=== PATIENT | male | born 1965 | race Hispanic/Latino ===

== ENCOUNTER 2016-10-22 21:31 | Inpatient (IN) | payer BC ==
[2016-10-22] MEDS ORDERED: Aspirin 325 mg EC Tablets PO STA (21:45)
[2016-10-22] MEDS ORDERED: diltiaZEM IVPB 100mg in NS 100 ML IV PRN (21:45)
--- NOTE | 2016-10-22 21:49 | ED PDOC ---
Arrival/HPI - General Chief Complaint: Cough, Cold, Congestion Time Seen by Provider: 10/22/16 21:37 Historian: Patient - History of Present Illness Narrative History of Present Illness (Text): 10/22/16 21:38 51 year old male smoker presents to the emergency department complaining of shortness of breath today. Patient states today he began experiencing shortness of breath with associated cough and palpitations.The patient currently does not take any medications and does not see his PMD regularly. Patient denies any chest pain, abdominal pain, chills, nausea, vomiting, fever, headaches or any other complaints. Time/Duration: Prior to Arrival Symptom Onset: Sudden Symptom Course: Unchanged Severity Level: Mild Activities at Onset: Light Context: Walking, Home Past Medical History - Provider Review Nursing Documentation Reviewed: Yes - Psychiatric Hx Substance Use: No - Anesthesia Hx Anesthesia: No Family/Social History - Physician Review Nursing Documentation Reviewed: Yes Family/Social History: No Known Family HX Smoking Status: Light Smoker < 10 Cigarettes Daily Hx Alcohol Use: Yes Frequency of alcohol use: Socially Hx Substance Use: No Allergies/Home Meds Allergies/Adverse Reactions: Allergies No Known Allergies Allergy (Verified 10/22/16 21:38) Home Medications: Home Meds Medication Instructions Recorded Confirmed No Known Home Med 10/22/16 10/22/16 Review of Systems - Physician Review All systems were reviewed & negative as marked: Yes - Review of Systems Constitutional: absent: Fevers, Night Sweats Respiratory: SOB, Cough Cardiovascular: Palpitations. absent: Chest Pain Gastrointestinal: absent: Abdominal Pain, Diarrhea, Nausea, Vomiting Neurological: absent: Headache Physical Exam Vital Signs Reviewed: Yes Vital Signs Temp Pulse Resp BP Pulse Ox 10/22/16 23:40 107 H 18 121/83 96 10/22/16 23:01 122/72 10/22/16 21:55 122 H 114/78 10/22/16 21:50 155 H 132/85 10/22/16 21:38 98 F 100 H 24 112/75 95 Temperature: Afebrile Blood Pressure: Normal Pulse: Tachycardic Respiratory Rate: Normal Appearance: Positive for: Well-Appearing Mental Status: Positive for: Alert and Oriented X 3 - Systems Exam Head: Present: Atraumatic, Normocephalic Pupils: Present: PERRL Extroacular Muscles: Present: EOMI Conjunctiva: Present: Normal Mouth: Present: Moist Mucous Membranes Neck: Present: Normal Range of Motion Respiratory/Chest: Present: Good Air Exchange, Rales (at bases). No: Respiratory Distress, Accessory Muscle Use Cardiovascular: Present: Irregular Rhythm (Irreguarl, regular), Tachycardic. No : Murmurs Abdomen: Present: Normal Bowel Sounds. No: Tenderness, Distention, Peritoneal Signs Back: Present: Normal Inspection Upper Extremity: Present: Normal Inspection. No: Cyanosis, Edema Lower Extremity: Present: Normal Inspection. No: Edema Neurological: Present: GCS=15, CN II-XII Intact, Speech Normal Skin: Present: Warm, Dry, Normal Color. No: Rashes Psychiatric: Present: Alert, Oriented x 3, Normal Insight, Normal Concentration Medical Decision Making ED Course and Treatment: 10/22/16 21:40 Impressions: A 51 year old male with shortness of breath, palpitations, and cough Differential Diagnosis: A-fib vs. ACS vs. pneumonia vs. CHF Plan: -- EKG -- Chest X-Ray -- Labs -- Cardizem -- Ecotrin -- Blood Gas --Reassess and disposition. Progress Notes EKG: Ordered, reviewed, and independently interpreted the EKG. Rate : 154 BPM Rhythm : a fib Interpretation : RVR, non specific T-wave changes. Comparison : No previous EKG for comparison. 10/22/16 22:44 Reviewed radiology chest x-ray rotated shows CHF. Labs noted, Troponin: 2.96, BNP: 3380. Repeat EKG, Heparin, IV fluids, Lasix ordered. Dr. Torres paged. Case discussed with Dr. Thompson, who is aware and agrees with plan. Accepts patient into her service. 10/22/16 22:45 EKG: Ordered, reviewed, and independently interpreted the EKG. Rate : 108 BPM Rhythm : A fib Interpretation : RVR, non specific T-wave changes. Comparison : As compared to earlier EKG taken at 21:40 (154 BPM, A fib, RVR, non specific T-wave changes). 10/22/16 23:[address] Pike, iron launder operator, who agrees to evaluate patient. 10/22/16 23:[address] Torres, wool scourer, who is aware and agrees with plan. Plavix ordered. 10/22/16 23:[address] Pike. Patient will be admitted to the ICU for new onset Atrial Fibrillation. - Critical Care Critical Care Minutes: 30 minutes Narrative Critical Care (Text): Management of new onset atrial fibrillation - Lab Interpretations Microbiology Results: Microbiology Results 10/22/16 22:10 Blood-Venous Blood Culture - Preliminary NO GROWTH AFTER 24 HOURS Lab Results: 10/22/16 21:48 10/22/16 21:48 Lab Results 10/22/16 22:30: pO2 69 H, VBG pH 7.45 H, VBG pCO2 32.0 L, VBG HCO3 22.2, VBG Total CO2 23.2, VBG O2 Sat (Calc) 96.5 H, VBG Base Excess -0.9 L, VBG Potassium 3.7, Glucose 119 H, Lactate 2.0, FiO2 21.0, Sodium 138.0, Chloride 106.0, Venous Blood Potassium 3.7 10/22/16 21:48: Sodium 139, Potassium 4.0, Chloride 104, Carbon Dioxide 22, Anion Gap 17, BUN 22 H, Creatinine 0.7, Est GFR ( Amer) > 60, Est GFR ( Non-Af Amer) > 60, Random Glucose 120 H, Calcium 9.2, Total Bilirubin 1.9 H, AST 65 H, ALT 60 H, Alkaline Phosphatase 105, Lactate Dehydrogenase 1137 H, Total Creatine Kinase 159, Troponin I 2.96 H*, NT-Pro-B Natriuret Pep 3380 H, Total Protein 7.4, Albumin 4.0, Globulin 3.3, Albumin/Globulin Ratio 1.2 10/22/16 21:48: PT 14.9 H, INR 1.38 H, APTT 27.3 10/22/16 21:48: WBC 9.4, RBC 4.38, Hgb 14.8, Hct 43.6, MCV 99.5, MCH 33.8, MCHC 33.9, RDW 14.0, Plt Count 216, MPV 9.5, Gran % 73.6 H, Lymph % (Auto) 12.8 L, [place] % (Auto) 12.2 H, Eos % (Auto) 1.0 L, Baso % (Auto) 0.4, Gran # 6.93 H, Lymph # 1.2, [place] # 1.2 H, Eos # 0.1, Baso # 0.04 I have reviewed the lab results: Yes - RAD Interpretation Radiology Orders: 10/22/16 21:44 CHEST PORTABLE [RAD] Stat Vacuum Pan Tender: ED Physician - EKG Interpretation Interpreted by ED Physician: Yes Type: 12 lead EKG - Medication Orders Current Medication Orders: Apixaban (Eliquis) 5 mg PO BID [facility] PRN Reason: Protocol Aspirin (Aspirin Chewable) 81 mg PO DAILY [facility] Stop: 10/24/16 23:59 Last Admin: 10/23/16 08:10 Dose: 81 mg Carvedilol (Coreg) 3.125 mg PO BID [facility] Last Admin: 10/23/16 17:28 Dose: 3.125 mg Digoxin (Lanoxin) 0.25 mg PO 1400 [facility] Last Admin: 10/23/16 14:29 Dose: 0.25 mg Furosemide (Lasix) 40 mg IV 0800,1400 [facility] Milrinone Lactate/Dextrose (Primacor 20mg/100ml D5w) 100 mls @ 6.94 mls/hr IV .[id number] PRN; Protocol; 0.2 MCG/KG/MIN PRN Reason: TITRATE PER MD ORDER Last Admin: 10/24/16 05:36 Dose: 0.2 mcg/kg/min, 6.94 mls/hr Magnesium Oxide (Mag-Ox) 400 mg PO BID [facility] Stop: 10/25/16 23:59 Morphine Sulfate (Morphine) 2 mg IVP Q4H PRN PRN Reason: Pain, severe (8-10) Last Admin: 10/23/16 07:04 Dose: 2 mg Pantoprazole Sodium (Protonix Inj) 40 mg IVP DAILY [facility] Potassium Chloride (K-Dur 20 Meq Er Tab) 40 meq PO ONCE ONE Stop: 10/24/16 13:01 Ramipril (Altace) 1.25 mg PO DAILY [facility] Spironolactone (Aldactone) 25 mg PO BID [facility] Last Admin: 10/23/16 17:28 Dose: 25 mg Verapamil HCl (Calan Tab) 40 mg PO TID [facility] Last Admin: 10/23/16 17:25 Dose: 40 mg Discontinued Medications Aspirin (Ecotrin) 325 mg PO STAT STA Stop: 10/22/16 21:46 Last Admin: 10/22/16 21:56 Dose: 325 mg Bacitracin (Bacitracin) 1 ea TOP ONCE ONE Stop: 10/23/16 10:42 Clopidogrel Bisulfate (Plavix) 300 mg PO STAT STA Stop: 10/23/16 07:55 Last Admin: 10/23/16 08:10 Dose: 300 mg Digoxin (Lanoxin) 0.25 mg IVP ONCE ONE Stop: 10/23/16 10:45 Diltiazem HCl (Cardizem) Confirm Administered Dose 25 mg .ROUTE .STK-MED ONE Stop: 10/22/16 21:43 Last Admin: 10/22/16 21:56 Dose: Diltiazem HCl (Cardizem) 20 mg IVP STAT STA Stop: 10/22/16 21:46 Last Admin: 10/22/16 21:50 Dose: 20 mg Fentanyl (Fentanyl) Confirm Administered Dose 100 mcg .ROUTE .STK-MED ONE Stop: 10/23/16 09:30 Last Admin: 10/23/16 10:10 Dose: 50 mcg Comments: 50mcgs by dr torres iv at 1010am Furosemide (Lasix) 20 mg IVP ONCE ONE Stop: 10/22/16 22:42 Last Admin: 10/22/16 23:01 Dose: 20 mg Furosemide (Lasix) 40 mg IVP Q12 [facility] Last Admin: 10/23/16 22:02 Dose: 40 mg Heparin Sodium (Porcine) (Heparin) 4,000 units IV ONCE ONE PRN Reason: Protocol Stop: 10/22/16 22:41 Last Admin: 10/22/16 23:13 Dose: 4,000 units Heparin Sodium (Porcine) (Heparin) Confirm Administered Dose 10,000 units .ROUTE .STK-MED ONE Stop: 10/23/16 09:29 Last Admin: 10/23/16 10:15 Dose: 2,500 units Comments: given by dr torres [place] 1015am diltiaZEM IVPB 100mg in NS (Cardizem 100mg In Ns) 100 mls @ 5 mls/hr IV .Q20H PRN; Protocol; 5 MG/HR PRN Reason: TITRATE PER MD ORDER Last Admin: 10/22/16 21:55 Dose: 5 mls/hr Heparin Sodium/Dextrose (Heparin 25,000 Units/250ml In D5w) 25,000 units in 250 mls @ 20.412 mls/hr IV .[id number] PRN; Protocol; 18 UNITS/KG/HR PRN Reason: ADJUST RATE PER PROTOCOL Last Admin: 10/22/16 23:07 Dose: 20.412 mls/hr Magnesium Sulfate 2 gm/ Sodium (Chloride) 104 mls @ 102 mls/hr IVPB STAT STA Stop: 10/23/16 09:08 Last Admin: 10/23/16 11:43 Dose: 102 mls/hr Nitroglycerin/Dextrose (Nitroglycerin 50 Mg/250 Ml D5w) Confirm Administered Dose 50 mg in 250 mls @ ud IV .STK-MED ONE Stop: 10/23/16 09:30 Last Admin: 10/23/16 10:15 Dose: 0.2 mg Comments: 200mcgs given ia by dr torres at 1015a Heparin Sodium (Porcine) (Heparin 1000 Units/500 Ml Ns) Confirm Administered Dose 1,500 mls @ ud IV .STK-MED ONE Stop: 10/23/16 09:30 Sodium Chloride (Sodium Chloride 0.9%) 1,000 mls @ 50 mls/hr IV .Q20H [facility] Stop: 10/23/16 15:00 Iohexol (Omnipaque 350mg/Ml 50 Ml) Confirm Administered Dose 50 ml .ROUTE .STK- MED ONE Stop: 10/23/16 10:04 Iohexol (Omnipaque 350 100 Ml) Confirm Administered Dose 350 mg .ROUTE .STK-MED ONE Stop: 10/23/16 10:04 Iohexol (Omnipaque 350 150 Ml) Confirm Administered Dose 150 ml .ROUTE .STK-MED ONE Stop: 10/23/16 10:04 Lidocaine HCl (Lidocaine 2% 20ml Vial) Confirm Administered Dose 20 ml .ROUTE .STK-MED ONE Stop: 10/23/16 09:28 Last Admin: 10/23/16 10:12 Dose: 2 ml Comments: 2 given to left wrist Magnesium Oxide (Mag-Ox) 400 mg PO STAT STA Stop: 10/23/16 08:08 Last Admin: 10/23/16 08:35 Dose: 400 mg Midazolam HCl (Versed Inj) Confirm Administered Dose 2 mg .ROUTE .STK-MED ONE Stop: 10/23/16 09:29 Last Admin: 10/23/16 10:10 Dose: 1 mg Comments: given by dr. torres iv Nitroglycerin (Nitro-Bid 2% Oint) 1 ea TOP ONCE STA Stop: 10/22/16 23:18 Last Admin: 10/22/16 23:48 Dose: 1 ea Ondansetron HCl (Zofran Inj) 4 mg IVP ONCE ONE Stop: 10/23/16 20:30 Last Admin: 10/23/16 20:35 Dose: 4 mg Phenylephrine HCl (Phenylephrine Inj) Confirm Administered Dose 10 mg .ROUTE .STK-MED ONE Stop: 10/23/16 09:29 Last Admin: 10/23/16 14:09 Dose: Potassium Chloride (K-Dur 20 Meq Er Tab) 40 meq PO STAT STA Stop: 10/23/16 08:07 Last Admin: 10/23/16 08:35 Dose: 40 meq Potassium Chloride (K-Dur 20 Meq Er Tab) 40 meq PO ONCE ONE Stop: 10/24/16 07:37 Verapamil HCl (Verapamil Inj) Confirm Administered Dose 5 mg IVP .STK-MED ONE Stop: 10/23/16 09:29 Last Admin: 10/23/16 10:15 Dose: 2.5 mg Comments: 1015am given [place] by dr. arsh Hatfield Statement The provider has reviewed the documentation as recorded by the Liu Murry, training under Sharron Casiano Provider Attestation: All medical record entries made by the Liu were at my direction and personally dictated by me. I have reviewed the chart and agree that the record accurately reflects my personal performance of the history, physical exam, medical decision making, and the department course for this patient. I have also personally directed, reviewed, and agree with the discharge instructions and disposition. Disposition/Present on Arrival - Present on Arrival Any Indicators Present on Arrival: No History of DVT/PE: No History of Uncontrolled Diabetes: No Urinary Catheter: No History of Decub. Ulcer: No History Surgical Site Infection Following: None - Disposition Have Diagnosis and Disposition been Completed?: Yes Diagnosis: Atrial fibrillation, Congestive heart failure (CHF) Disposition: HOSPITALIZED Disposition Time: 23:30 Condition: FAIR
[2016-10-22 22:18] LABS: ALB/GLOB RATIO 1.2 (1.1-1.8); ALT/SGPT 60 U/L (7-56); AST/SGOT 65 U/L (15-59); BLOOD UREA NITROGEN 22 mg/dL (7-21); CALCIUM 9.2 mg/dL (8.4-10.5); GFR AFRICAN-AMERICAN > 60; GFR NON-AFRICAN AMERICAN > 60; GRAN % 73.6 % (50.0-68.0); HEMOGLOBIN 14.8 gm/dL (14.0-18.0); LYMPH % 12.8 % (22.0-35.0); MEAN CELL VOLUME 99.5 fL (80.0-105.0); MEAN CORPUSCULAR HEMOGLOBIN 33.8 pg (25.0-35.0); MEAN CORPUSCULAR HGB CONC 33.9 g/dl (31.0-37.0); MEAN PLATELET VOLUME 9.5 fl (7.0-11.0); PLATELET COUNT 216 10^3/uL (120.0-450.0); RBC 4.38 10^6/uL (3.5-6.1); WHITE BLOOD COUNT 9.4 10^3/ul (4.5-11.0)
[2016-10-22 22:19] LABS: BASO # 0.04 K/mm3 (0.0-2.0); BASO % 0.4 % (0.0-3.0); EOS # 0.1 (0.0-0.7); GRAN # 6.93 (1.4-6.5); LYMPH # 1.2 (1.2-3.4); MONO # 1.2 (0.1-0.6); MONO % 12.2 % (1.0-6.0)
[2016-10-22 22:27] LABS: B-TYPE NATRIURETIC PEPTIDE 3380 pg/mL (0-450); INR 1.38 (0.93-1.08); PARTIAL THROMBOPLASTIN TIME 27.3 Seconds (23.7-30.8); PROTHROMBIN TIME 14.9 Seconds (9.9-11.8)
[2016-10-22 22:37] LABS: TROPONIN I 2.96 ng/mL
[2016-10-22] MEDS ORDERED: Heparin 25,000units in D5W 25,000 UNITS/250 ML BAG IV PRN (22:40)
[2016-10-22 22:54] LABS: VENOUS BLOOD GAS BASE EXCESS -0.9 mmol/L (0.0-2.0); VENOUS BLOOD GAS PO2 69 mm/Hg (30-55); VENOUS BLOOD PH 7.45 (7.32-7.43)
[2016-10-22] MEDS ORDERED: Nitroglycerin 2% Ointment Foilpak UD TOP STA (23:17)
--- NOTE | 2016-10-22 23:56 | CP.PCM.CON ---
<TIKA MOSHER - Last Filed: 10/22/16 23:38> History of Present Illness - History of Present Illness History of Present Illness: Pt is 51 yo M who presented to the ED for a one week history of SOB. Pt states that the SOB progressively worsened over the last 48 hours, in which he also had a productive cough and b/l LE swelling. Pt denied any past occurrences. Pt states that increased activity exacerbates his symptoms and denied any alleviating factors. Pt admits to some nausea and vomiting once yesterday after PO intake, but is tolerating PO fluids. Pt also states he had some LLQ pain over the past week with diarrhea, however pain is not present at time of exam. Pt admits to CP with cough/emesis, but denied radiation to jaw/neck/shoulder, palpations, fevers, chills, or vertigo. PMHx: Denied Surg: Appendectomy (as child) FHx: DVT (mother) SH: Admits to tobacco use (1 pack/wk >20 yrs) and social EtOH use, denied illicit drug use All: NKDA Medications: Denied PMD: none Review of Systems - Review of Systems All systems: reviewed and no additional remarkable complaints except (12 point ROS negative other than those stated in HPI) Past Patient History - Past Social History Smoking Status: Light Smoker < 10 Cigarettes Daily - PSYCHIATRIC Hx Substance Use: No - SURGICAL HISTORY Hx Surgeries: No - ANESTHESIA Hx Anesthesia: No Meds Allergies/Adverse Reactions: Allergies Allergy/AdvReac Type Severity Reaction Status Date / Time No Known Allergies Allergy Verified 10/22/16 21:38 - Medications Medications: Current Medications diltiaZEM IVPB 100mg in NS (Cardizem 100mg In Ns) 100 mls @ 5 mls/hr IV .Q20H PRN; Protocol; 5 MG/HR PRN Reason: TITRATE PER MD ORDER Last Admin: 10/22/16 21:55 Dose: 5 mls/hr Heparin Sodium/Dextrose (Heparin 25,000 Units/250ml In D5w) 25,000 units in 250 mls @ 20.412 mls/hr IV .[id number] PRN; Protocol; 18 UNITS/KG/HR PRN Reason: ADJUST RATE PER PROTOCOL Last Admin: 10/22/16 23:07 Dose: 20.412 mls/hr Physical Exam - Head Exam Head Exam: ATRAUMATIC, NORMOCEPHALIC - Eye Exam Eye Exam: EOMI, Normal appearance, PERRL. absent: Conjunctival injection - ENT Exam ENT Exam: Mucous Membranes Dry - Neck Exam Neck exam: Positive for: Full Rom. Negative for: Lymphadenopathy, Tenderness, Thyromegaly - Respiratory Exam Respiratory Exam: Clear to Auscultation Bilateral. absent: Rales, Rhonchi, Wheezes Additional comments: Tachypnic - Cardiovascular Exam Cardiovascular Exam: Tachycardia, Irregular Rhythm. absent: Diastolic murmur, Gallop, Rubs, Systolic Murmur - GI/Abdominal Exam GI & Abdominal Exam: Soft. absent: Distended, Guarding, Rebound, Tenderness - Extremities Exam Extremities exam: Positive for: pedal edema (1+/4). Negative for: calf tenderness, joint swelling, tenderness - Neurological Exam Neurological exam: Alert, CN II-XII Intact, Oriented x3 - Psychiatric Exam Psychiatric exam: Normal Affect, Normal Mood - Skin Skin Exam: Dry, Intact, Normal Color, Warm Results - Vital Signs Recent Vital Signs: Last Vital Signs Temp 98 F 10/22/16 21:38 Pulse 122 H 10/22/16 21:55 Resp 24 10/22/16 21:38 BP 122/72 10/22/16 23:01 Pulse Ox 95 10/22/16 21:38 - Labs Result Diagrams: 10/22/16 21:48 10/22/16 21:48 Assessment & Plan - Assessment and Plan (Free Text) Assessment: 51 yo M who denied PMHx will be admitted for evaluation and treatment for new onset A-fib with RVR and probably CHF. Neuro -Monitor closely -AAO x3 -Maintain normothermia Cardio -Troponin 2.96, NSTEMI vs 2/2 CHF exacerbation as BNP is 3380 -A-fib with RVR in the ED, improved with Cardezem drip, titrate to HR<110 -Heparin drip for anticoagulation in setting of a-fib -Lasix 40 mg IV BID given elevated BNP, suspicious for fluid overload -Serial troponins -F/u EKG in AM -Maintain MAP >65, no pressure support needed at this time -F/u echocardiogram -NPO pending possible cardiac cath Pulm -Maintain O2 sat >92%, no supplemental O2 needed at this time -SOB likely 2/2 fluid overload, will reassess after several rounds of diuresis GI -Protonix PPx -NPO pending possible cardiac cath Nephro -Monitor I's and O's, goal is negative fluid intake given actively diuresing 2/ 2 CHF -Replenish electrolyes as needed Endo -Maintain euglycemia Heme/ID -Monitor H/H -No leukocytosis, afebrile at this time -Heparin drip covers for DVT PPx Pt was seen and discussed in detail with Dr. Pike. <Jamal Pike - Last Filed: 10/23/16 01:21> Meds - Medications Medications: Current Medications Aspirin (Aspirin Chewable) 81 mg PO DAILY [facility] Clopidogrel Bisulfate (Plavix) 75 mg PO DAILY [facility] Furosemide (Lasix) 40 mg IVP Q12 [facility] Heparin Sodium/Dextrose (Heparin 25,000 Units/250ml In D5w) 25,000 units in 250 mls @ 20.412 mls/hr IV .[id number] PRN; Protocol; 18 UNITS/KG/HR PRN Reason: ADJUST RATE PER PROTOCOL Last Admin: 10/22/16 23:07 Dose: 20.412 mls/hr diltiaZEM IVPB 100mg in NS (Cardizem 100mg In Ns) 100 mls @ 5 mls/hr IV .Q20H PRN; Protocol; 5 MG/HR PRN Reason: TITRATE PER MD ORDER Pantoprazole Sodium (Protonix Inj) 40 mg IVP DAILY [facility] Results - Vital Signs Recent Vital Signs: Last Vital Signs Temp 98.5 F 10/23/16 00:26 Pulse 105 H 10/23/16 00:26 Resp 22 10/23/16 00:26 BP 138/80 10/23/16 00:26 Pulse Ox 96 10/22/16 23:40 - Labs Result Diagrams: 10/22/16 21:48 10/22/16 21:48 Attending/Attestation - Attestation I have personally seen and examined this patient.: Yes I have fully participated in the care of the patient.: Yes I have reviewed all pertinent clinical information: Yes Notes (Text): 10/23/16 01:18 I agree with the above mentioned note and exam by Dr. Mosher with the addition/ exception of the followin51 y/o male without a significant PMHx presents to the ED after experiencing a progressive 1 week history of shortness of breath. Patient was found to be in Afib with RVR in the ED requiring IV Cardizem boluses followed by a drip. He's also found to have an elevated trop indicating NSTEMI; he is on a heparin drip as well. He will be rate controlled and monitored closely overnight in the ICU with a possible Catheterization when deemed appropriate by Cardiology. labs and images available to me thus far have been reviewed case discussed in detail with Dr. Galicia in the ED Total time of care: 40 minutes
[2016-10-23] MEDS ORDERED: diltiaZEM IVPB 100mg in NS 100 ML IV PRN (00:34)
[2016-10-23 01:13] VITALS: BMI 30.6
[2016-10-23 06:50] LABS: HEMOGLOBIN 13.5 gm/dL (14.0-18.0); MEAN CORPUSCULAR HEMOGLOBIN 33.9 pg (25.0-35.0); MEAN CORPUSCULAR HGB CONC 33.9 g/dl (31.0-37.0); MEAN PLATELET VOLUME 9.3 fl (7.0-11.0); RBC 3.98 10^6/uL (3.5-6.1); RED CELL DISTRIBUTION WIDTH 13.8 % (11.5-14.5); WHITE BLOOD COUNT 9.1 10^3/ul (4.5-11.0)
[2016-10-23] MEDS ORDERED: Morphine 2 mg/ml ISec IVP PRN (06:56)
[2016-10-23 07:01] LABS: ALB/GLOB RATIO 1.2 (1.1-1.8); ALBUMIN 3.5 g/dL (3.0-4.8); ALT/SGPT 58 U/L (7-56); AST/SGOT 51 U/L (15-59); BLOOD UREA NITROGEN 17 mg/dL (7-21); CALCIUM 8.6 mg/dL (8.4-10.5); GFR AFRICAN-AMERICAN > 60; GFR NON-AFRICAN AMERICAN > 60; MAGNESIUM 1.6 mg/dL (1.7-2.2)
[2016-10-23] MEDS ORDERED: Potassium Chloride 20 mEq ER Tab PO STA (08:06)
[2016-10-23] MEDS ORDERED: Magnesium Oxide 400 mg Tab UD PO STA (08:07)
[2016-10-23] MEDS ORDERED: Magnesium Sulfate 2 GM in Sodium Chloride 0.9% 100 ML IVPB STA (08:07)
[2016-10-23 08:19] LABS: TROPONIN I 3.22 ng/mL
[2016-10-23 08:39] LABS: HDL CHOLESTEROL 25 mg/dL (29-60)
--- NOTE | 2016-10-23 08:41 | RAD ---
HISTORY: sob COMPARISON: No prior. FINDINGS: LUNGS: No active pulmonary disease. PLEURA: No significant pleural effusion identified, no pneumothorax apparent. CARDIOVASCULAR: Moderate cardiomegaly and mild vascular congestion OSSEOUS STRUCTURES: No significant abnormalities. VISUALIZED UPPER ABDOMEN: Normal. OTHER FINDINGS: None. IMPRESSION: Moderate cardiomegaly and mild vascular congestion
[2016-10-23 08:46] LABS: LDL CHOLESTEROL 102 mg/dL (0-129)
[2016-10-23] MEDS ORDERED: Lidocaine 2% Inj (20ml) ONE (09:27)
[2016-10-23] MEDS ORDERED: Midazolam 2 MG/2 ML VIAL ONE (09:28)
[2016-10-23] MEDS ORDERED: Phenylephrine 10 mg/ml Inj ONE (09:28)
[2016-10-23] MEDS ORDERED: Nitroglycerin 50mg in D5W 50 MG/250 ML BOTTLE IV ONE (09:29)
[2016-10-23] MEDS ORDERED: Iohexol 350mgl/ml 50 ML ONE (10:03)
[2016-10-23] MEDS ORDERED: Iohexol 350 MG/100 ML VIAL ONE (10:03)
[2016-10-23] MEDS ORDERED: Bacitracin 500 Units/gm Oint Foilpak UD TOP ONE (10:41)
[2016-10-23] MEDS ORDERED: Digoxin 500 mcg/2ml (0.5 mg/2ml) Inj IVP ONE (10:44)
[2016-10-23] MEDS ORDERED: Sodium Chloride 0.9% 1,000 ML IV SCH (10:45)
--- NOTE | 2016-10-23 12:48 | CARD ---
APPROVED REPORT EKG Measurement Heart [id number] <Conclusion> Atrial fibrillation T wave abnormality, consider anterolateral ischemia or digitalis effect Prolonged QT Abnormal ECG
--- NOTE | 2016-10-23 12:53 | CARD ---
APPROVED REPORT EKG Measurement Heart [id number] <Conclusion> Atrial fibrillation with rapid ventricular response Nonspecific T wave abnormality, probably digitalis effect Abnormal ECG
--- NOTE | 2016-10-23 12:54 | CARD ---
APPROVED REPORT EKG Measurement Heart [id number] <Conclusion> Atrial fibrillation with rapid ventricular response Nonspecific T wave abnormality, probably digitalis effect Abnormal ECG
--- NOTE | 2016-10-23 13:18 | CP.PCM.PN ---
<ANSLEYLAKISHA - Last Filed: 10/23/16 13:13> Subjective - Date & Time of Evaluation Date of Evaluation: 10/23/16 Time of Evaluation: 09:00 - Subjective Subjective: ICU PGY1 Progress Note: Pt seen and examined at bedside. Pt admitted to ICU overnight for new onset of afib with RVR, on cardizem and heparin drip, in the setting of elevated troponins and concern of NSTEMI. Denies dyspnea at rest, palpitations, cough, cp , n/v/d, fever, chills, abdominal pain. Objective - Vital Signs/Intake and Output Vital Signs (last 24 hours): Temp Pulse Resp BP Pulse Ox 97.8 F 89 18 123/66 93 L 10/23/16 10:41 10/23/16 12:00 10/23/16 06:20 10/23/16 06:00 10/23/16 06:20 Intake and Output: 10/23/16 10/23/16 06:59 18:59 Intake Total 270 Output Total 1400 Balance -1130 - Medications Medications: Current Medications Apixaban (Eliquis) 5 mg PO BID GABRIELA PRN Reason: Protocol Aspirin (Aspirin Chewable) 81 mg PO DAILY [facility] Stop: 10/24/16 23:59 Last Admin: 10/23/16 08:10 Dose: 81 mg Carvedilol (Coreg) 3.125 mg PO BID GABRIELA Digoxin (Lanoxin) 0.25 mg PO 1400 GABRIELA Furosemide (Lasix) 40 mg IVP Q12 [facility] Last Admin: 10/23/16 01:25 Dose: 40 mg Sodium Chloride (Sodium Chloride 0.9%) 1,000 mls @ 50 mls/hr IV .Q20H [facility] Stop: 10/23/16 15:00 Morphine Sulfate (Morphine) 2 mg IVP Q4H PRN PRN Reason: Pain, severe (8-10) Last Admin: 10/23/16 07:04 Dose: 2 mg Pantoprazole Sodium (Protonix Inj) 40 mg IVP DAILY GABRIELA Ramipril (Altace) 1.25 mg PO DAILY GABRIELA Spironolactone (Aldactone) 25 mg PO BID [facility] - Labs Labs: 10/23/16 05:30 10/23/16 05:30 PT 14.9 Seconds (9.9-11.8) H 10/22/16 21:48 INR 1.38 (0.93-1.08) H 10/22/16 21:48 APTT 60.4 Seconds (23.7-30.8) H 10/23/16 05:30 - Constitutional Appears: No Acute Distress - Head Exam Head Exam: ATRAUMATIC, NORMOCEPHALIC - Eye Exam Eye Exam: PERRL - ENT Exam ENT Exam: Mucous Membranes Moist - Respiratory Exam Respiratory Exam: Clear to Ausculation Bilateral - Cardiovascular Exam Cardiovascular Exam: Irregular Rhythm - GI/Abdominal Exam GI & Abdominal Exam: Soft, Normal Bowel Sounds. absent: Distended, Tenderness - Extremities Exam Extremities Exam: absent: Calf Tenderness, Pedal Edema - Neurological Exam Neurological Exam: Alert, Awake, Oriented x3 - Skin Skin Exam: Dry, Intact, Warm Assessment and Plan - Assessment and Plan (Free Text) Assessment: 51M with no PMH, admitted to ICU for new onset of atrial fibrillation with RVR, in the setting of elevation troponins, BNP and the concern of NSTEMI. Pt s/p cardiac cath, will await for report. No angioplasty done; no STEMI. Will f/u with Cardio regarding further management of afib, currently on Eliquis and Digoxin. Plan: Neuro -Monitor closely -AAO x3 Cardio -Troponin 2.96->3.22 - New onset of afib 2/2 likely CHF vs EtOH vs cardiomyopathy, unlikely NSTEMI ( since coronary angiogram showed no blockage). - F/u full report of cardiac cath. -A-fib with RVR in the ED, improved with Cardezem drip, titrated to HR<110, off cardizem drip now. - s/p heparin drip for anticoagulation -Cardio (dr. Torres) on board. C/w Lasix 40 mg IV BID, ASA 81, Coreg, Digoxin, Ramipril 1.25 mg, aldactone 25mg bid. -Maintain MAP >65 -F/u echocardiogram Pulm -On NC, Maintain O2 sat >92% -Denies SOB, lungs CTA - CXR shows no pneumonia/pleural effusion. + Cardiomegaly and mild vascular congestion. GI -Protonix PPx - Heart healthy diet Nephro -Monitor I's and O's -Replenish electrolyes as needed Endo -Maintain euglycemia Heme/ID -Monitor H/H -No leukocytosis, afebrile at this time -Maintain normothermia DVT PPX: eliquis GI PPX: PPX Pt was seen and discussed with PGY2 and attending, Dr. Pedroza. Lakisha Menjivar, PGY1 <Yovany JOHNSON,Paulo H - Last Filed: 10/23/16 13:55> Objective - Vital Signs/Intake and Output Vital Signs (last 24 hours): Temp Pulse Resp BP Pulse Ox 97.8 F 107 H 20 121/73 90 L 10/23/16 10:41 10/23/16 13:30 10/23/16 13:30 10/23/16 13:30 10/23/16 13:30 Intake and Output: 10/23/16 10/23/16 06:59 18:59 Intake Total 270 Output Total 1400 Balance -1130 - Medications Medications: Current Medications Apixaban (Eliquis) 5 mg PO BID GABRIELA PRN Reason: Protocol Aspirin (Aspirin Chewable) 81 mg PO DAILY [facility] Stop: 10/24/16 23:59 Last Admin: 10/23/16 08:10 Dose: 81 mg Carvedilol (Coreg) 3.125 mg PO BID G[facility]RIELA Digoxin (Lanoxin) 0.25 mg PO 1400 GABRIELA Furosemide (Lasix) 40 mg IVP Q12 [facility] Last Admin: 10/23/16 01:25 Dose: 40 mg Sodium Chloride (Sodium Chloride 0.9%) 1,000 mls @ 50 mls/hr IV .Q20H [facility] Stop: 10/23/16 15:00 Morphine Sulfate (Morphine) 2 mg IVP Q4H PRN PRN Reason: Pain, severe (8-10) Last Admin: 10/23/16 07:04 Dose: 2 mg Pantoprazole Sodium (Protonix Inj) 40 mg IVP DAILY [facility] Ramipril (Altace) 1.25 mg PO DAILY [facility] Spironolactone (Aldactone) 25 mg PO BID [facility] - Labs Labs: 10/23/16 05:30 10/23/16 05:30 PT 14.9 Seconds (9.9-11.8) H 10/22/16 21:48 INR 1.38 (0.93-1.08) H 10/22/16 21:48 APTT 60.4 Seconds (23.7-30.8) H 10/23/16 05:30 Attending/Attestation - Attestation I have personally seen and examined this patient.: Yes I have fully participated in the care of the patient.: Yes I have reviewed all pertinent clinical information, including history, physical exam and plan: Yes Notes (Text): 10/23/16 13:52 51 y/o M w/ new onset A FIB Found to have NSTEMI likely the A FIB is greater than 48 hrs but cannot confirm. Cardiac Cath did not show any stentable lesions. ECHO / MUGA pending. Could be a candidate for cardioversion, chemical vs mechanical and if ARMANI is needed. Cardiology to determine the dispo. Continued on B Blockers, Asprin, elequis, ghulam i, spironolactone . dvt p heparin sq cc time 55 min
[2016-10-23 13:29] LABS: VENOUS BLOOD GAS PO2 45 mm/Hg (30-55); VENOUS BLOOD PH 7.46 (7.32-7.43)
[2016-10-23] MEDS: Digoxin 250 mcg (0.25 mg) Tab PO SCH (14:29)
--- NOTE | 2016-10-23 15:15 | PN ---
DATE: 10/23/2016 REASON Fod R CONSULTATION: Acute non-STEMI; acute decompensated congestive heart failure; atrial fibrillation, new onset. SUBJECTIVE: A 51-year-old male with no significant history admitted with acute decompensated congestive heart failure, new onset of atrial fibrillation and positive troponin. The patient underwent cardiac catheterization that revealed left essentially significant LAD and circumflex LAD essentially free of significant disease. Circumflex are moderate large caliber vessels free of significant disease, but OM1 branch is 80% to 90% stenosis, very distal, not feasible for PCI. Left circumflex is essentially free of significant disease. RCA is a very large caliber vessel, essentially free of any significant disease. Left ventriculogram shows decreased LV function, approximately 35%, cannot comment definitely on mitral regurgitation as well as ejection fraction because of the hand injection. IMPRESSION: Acute decompensated congestive heart failure, atrial fibrillation, nonischemic cardiopathy, positive troponin secondary to distal circumflex as well as possibly atrial fibrillation with rapid ventricular rate. The CAD is not feasible for PCI essentially and nonobstructive coronary artery disease; major essentially free of any significant disease RECOMMENDATION: We will get echo to assess LV function. In the interim, we will start digoxin, diuretics, KERMIT inhibitors, Coreg and spironolactone. Get echo to assess LV function and start Eliquis 5 mg b.i.d. from tomorrow. Further recommendations depending on hospital course. We will follow up with you. Thank you providing me the opportunity in taking care of Glen Betancourt. Miles Torres MD
--- NOTE | 2016-10-23 16:41 | CARD ---
APPROVED REPORT EXAM: Two-dimensional and M-mode echocardiogram with Doppler and color Doppler. INDICATION Atrial Fibrillation Chest Pain Congestive Heart Failure Non STEMI 2D DIMENSIONS Left Atrium (2D)7.0 (1.6-4.0cm)IVSd1.0 (0.7-1.1cm) LVDd7.9 (3.9-5.9cm)PWd1.3 (0.7-1.1cm) LVDs6.9 (2.5-4.0cm)FS (%) 13.3 % LVEF (%)27.3 (>50%) M-Mode DIMENSIONS Aortic Root3.50 (2.2-3.7cm)Aortic Cusp Exc.1.80 (1.5-2.0cm) Aortic Valve AoV Peak Mydcquve894.0cm/Eloisa Peak GR.4mmHg Mitral Valve E/A ratio0.0 TDI E/Lateral E'0.0E/Medial E'0.0 Pulmonary Valve PV Peak Wbektcsz22.9cm/sPV Peak Grad.1mmHg Tricuspid Valve TR Peak [id number] [id number] Peak Gr.61mmHg [id number] LEFT VENTRICLE The Left Ventricle is severely dilated. There is normal left ventricular wall thickness. The systolic function is severely impaired.EF-25-30% There is Severe global hypokinesis of the left ventricle. A Fib No left ventricle thrombus noted on this study. There is no ventricular septal defect visualized. There is no left ventricular aneurysm. There is no mass noted in the left ventricle. RIGHT VENTRICLE The right ventricle is severely dilated. There is normal right ventricular wall thickness. Systolic function is severely reduced. ATRIA The left atrium is severely dilated. The right atrium is severely dilated. The interatrial septum is intact with no evidence for an atrial septal defect. AORTIC VALVE The aortic valve is calcified but opens well. There is trace aortic regurgitation. There is no aortic valvular stenosis. There is no aortic valvular vegetation. MITRAL VALVE The mitral valve is thickened but opens well. Mitral regurgitation is severe. There is no mitral valve stenosis. There is no evidence of mitral valve prolapse. TRICUSPID VALVE The tricuspid valve leaflets are thickened or calcified, but open well. There is moderate to severe tricuspid regurgitation.RVSP-71 mmof hg. There is no tricuspid valve stenosis. PULMONIC VALVE The pulmonic valve is borderline thickened. There is trace to mild pulmonic valvular regurgitation. There is no pulmonic valvular stenosis. GREAT VESSELS The aortic root is normal in size. The ascending aorta is normal in size. The pulmonary artery is normal. The IVC is normal in size and collapses >50% with inspiration. PERICARDIAL EFFUSION There is no pleural effusion. There is no pericardial effusion. <Conclusion> Four chamber dilatation C/W CMP. EF-25-30% Sever MR Moderate to Sever TR. RVSP-71 ,C/W moderate to sever Pulmnary HTN Trace AR Trace to Mild PI no vegetation or thrombus noted.
--- NOTE | 2016-10-23 16:49 | CARD ---
APPROVED REPORT Procedure(s) performed: Left Heart Catheterization HISTORY The patient is a 51 year-old male with a history of : Admitted with new onset CHF, NSTEMI and A Fib RVR. INDICATION The indication(s) include : positive stress test. CASE TECHNIQUE The patient was brought emergently to the Cardiac Catheterization Laboratory in a fasting state and was prepped and draped in a sterile manner. The left wrist was infiltrated with 2% Lidocaine subcutaneous anesthesia. A 6 Fr Glidesheath (Radial) sheath was inserted into the left radial artery without difficulty. Coronary angiography was performed using coronary diagnostic catheters. The left coronary system was accessed and visualized with a Diagnostic ,5 Fr JL 4 catheter. The right coronary system was accessed and visualized with a Diagnostic ,5 Fr JR 4 catheter. The left ventricle was accessed and visualized with a 5 Fr Pigtail 145 (Angled) catheter. Left ventriculogram was performed in GATES projection. The patient tolerated the procedure well and there were no complications associated with the procedure. Vessel Analysis The patient's coronary anatomy is co-dominant. The left main coronary artery is a large size vessel with intimal irregularities. The left main bifurcates to the left anterior descending and circumflex. The left anterior descending artery is a large size vessel without significant stenosis. The first diagonal branch is a medium size vessel with diffuse calcification noted throughout this vessel and without significant stenosis. The second diagonal branch is a small size vessel with diffuse calcification noted throughout this vessel and without significant stenosis. The circumflex artery is a large size vessel with intimal irregularities and without significant stenosis. The first obtuse marginal branch is a medium size vessel with diffuse calcification noted throughout this vessel and without significant stenosis. There is a 80-90% stenosis in the very distal segment. Stenosis in the very distal segment not suitable for PCI The left posterior descending artery is a medium size vessel with diffuse calcification noted throughout this vessel and without significant stenosis. The right coronary artery is a large size vessel with intimal irregularities. The right posterior descending artery is a large size vessel with intimal irregularities and without significant stenosis. Left Ventricle The left ventricle is enlarged in size with moderately contractility. Non-Ischemic cardiomyopathy. The left ventricular ejection fraction is estimated to be 25-30%. The left ventricular end diastolic pressure is 20 mmHg. There was no gradient across the aortic valve upon pullback. Conclusion Non Obstructive CAD Major Epicardial coronaries are normal, but OM1 very distal 80-90% stenosis, not suitable for PCI and Marginal benefit for revascularization. Severely Decreased LV FX, possibly 25-30%. Enlarged LV, EDP-20 mmof Hg. Non Ischemic CMP Recommendations Smoking Cessation Aggressive Medical TherapyCardiac Risk Reduction Program Weight Loss Reduction Program Abstinence of ETOH abuse Echo / Muga scan to Assess LV FX and MR Interim Dig, diuretics, KERMIT, Coreg, and spironlactone Re-assess Lv Fx in 3-6 months and if remains less than 35%, consider AICD. CC; DRs. Thompson/ Maria Alejandra.
[2016-10-23] MEDS: Milrinone 20mg/100ml D5W 100 ML IV PRN (17:29)
--- NOTE | 2016-10-23 19:21 | CON ---
DATE: 10/23/2016 CONSULT SERVICE: Cardiology. REASON FOR CONSULTATION: Non-ST segment myocardial infarction, congestive heart failure, atrial fibrillation, new onset. 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 *------* got to the point that the patient is unable to breathe, called the sister who lives one block away, who was brought here to the ER, found to be atrial fibrillation with rapid ventricular rate, later on the troponin found to be positive and BNP found to be elevated. Chest x-ray consistent with the congestive heart failure. Patient denies any chest pain, but complained of dizziness, exertion and short of breath since the last week started flu-like symptom. PAST MEDICAL HISTORY: Nothing significant past history. CURRENT MEDICATIONS: None. SURGICAL HISTORY: History of appendectomy as a child. FAMILY HISTORY: Significant for coronary artery disease, father had a stroke and NE at the age of 49. ALLERGY: NO KNOWN DRUG ALLERGY. SOCIAL HISTORY: He smokes a pack over the period of awkq-acn-c-half and drinks 6 cans of beer over the weekend, one day. REVIEW OF SYSTEMS: As per HPI. Rest is negative except as per HPI symptoms which started one week prior to admission. PHYSICAL EXAMINATION: As follows: VITAL SIGNS: Temperature afebrile, heart rate 89, blood pressure 123/66. Height of the patient is 6 feet 4 inches, weight of the patient 251 pounds, body mass index 31 kg/m2. Rest of the examination as follows: HEENT: PERRLA. Extraocular muscles intact. NECK: Supple. No carotid bruit. No thyromegaly. CHEST: Clear to auscultation. HEART: S1 and S2, regular. ABDOMEN: Soft. EXTREMITIES: Clubbing and cyanosis negative. LABORATORY DATA: Blood workup as follows: WBC 9.1, hemoglobin 13.5, hematocrit 39.8, and platelet count 205. Chemistry shows sodium 140, potassium 3.6, chloride 103, carbon dioxide 26, anion gap of 615, BUN 17, creatinine of 0.7, and magnesium 1.6. Troponin 2.96, BNP 3080, this morning troponin pending. EKG shows normal atrial fibrillation rate of 90 now, T-inversion V5, V6, I and aVL. IMPRESSION: Acute congestive heart failure, atrial fibrillation with rapid ventricular rate, non-ST segment myocardial infarction, coronary artery disease, hypomagnesemia and hypokalemia. RECOMMENDATION: We will load with 300 Plavix, heparin is stopped 6:00. Risks, benefits and alternatives were discussed with the patient and the patient's sister Anne Marie telephone number [phone]. I explained the patient risks and benefits. We will talk to the patient about cardiac cath and possible angioplasty. Further recommendations after cardiac catheterization. We will also load with 300 Plavix, supplement electrolyte, get lipid profile, TSH, hemoglobin A1c. We will follow with you. Miles Torres MD
[2016-10-24] MEDS: Milrinone 20mg/100ml D5W 100 ML IV PRN ×2 (05:36→22:58)
[2016-10-24 06:12] LABS: MEAN CELL VOLUME 98.7 fL (80.0-105.0); MEAN CORPUSCULAR HEMOGLOBIN 33.4 pg (25.0-35.0); MEAN CORPUSCULAR HGB CONC 33.9 g/dl (31.0-37.0); MEAN PLATELET VOLUME 8.8 fl (7.0-11.0); RBC 3.89 10^6/uL (3.5-6.1); RED CELL DISTRIBUTION WIDTH 13.9 % (11.5-14.5); WHITE BLOOD COUNT 7.7 10^3/ul (4.5-11.0)
[2016-10-24 06:46] LABS: ALB/GLOB RATIO 1.1 (1.1-1.8); ALBUMIN 3.3 g/dL (3.0-4.8); ALT/SGPT 55 U/L (7-56); AST/SGOT 46 U/L (15-59); BLOOD UREA NITROGEN 19 mg/dL (7-21); CALCIUM 8.4 mg/dL (8.4-10.5); GFR AFRICAN-AMERICAN > 60; GFR NON-AFRICAN AMERICAN > 60; MAGNESIUM 1.9 mg/dL (1.7-2.2)
[2016-10-24] MEDS ORDERED: Potassium Chloride 20 mEq ER Tab PO ONE ×2 (07:36→13:00)
[2016-10-24] MEDS: Magnesium Oxide 400 mg Tab UD PO SCH ×2 (11:13→18:17)
--- NOTE | 2016-10-24 11:21 | PN ---
DATE: 10/24/2016 REASON FOR CONSULTATION: Followup positive troponin, atrial fibrillation, rapid ventricular rate, new onset of CHF. BRIEF CLINICAL HISTORY: This is a 51-year-old male with history of moderate tobacco abuse, admitted with acute onset of congestive heart failure, new onset of atrial fibrillation, and positive troponin. Underwent cardiac catheterization yesterday. On IV Primacor and heart failure medication, improved to significantly have good diuresis. Denies any shortness of breath, denies any palpitation. PHYSICAL EXAMINATION: VITAL SIGNS: Temperature afebrile, heart rate 92, blood pressure 115/61. HEENT: PERRLA. Extraocular muscles intact. NECK: Supple. No carotid bruits or thyromegaly. CHEST: Clear to auscultation. HEART: S1 and S2, irregular. ABDOMEN: Soft. EXTREMITIES: Clubbing and cyanosis negative. LABORATORY DATA: Blood workup as follows: WBC 7.7, hemoglobin 13, hematocrit 38.4, platelets count 196. Chemistry shows sodium 139, potassium 3.7, chloride of 103, carbon dioxide 26, anion gap of 14, BUN 19, creatinine 0.9, total bilirubin 1.5, and magnesium 1.9. 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 History of six cans of beer over the weekend, admitted with acute decompensated congestive heart failure, atrial fibrillation and troponin positive. The patient underwent cardiac catheterization that revealed essentially LAD normal, left main normal, circumference normal, distal OM1 branch of 80% to 90% of stenosis, very distal, where as right coronary artery essentially normal. Decreased LV function and ejection fraction 25%. The patient subsequently underwent echo that also show ejection fraction of 25% to 30%, 4 chamber dilatation with severe mitral regurgitation, [id number] tricuspid regurgitation, pulmonary hypertension, RV systolic pressure 71 consistent with [id number] pulmonary hypertension, new onset of atrial fibrillation, congestive heart failure, troponin positive secondary to distal OM1 as well as congestive heart failure, nonischemic cardiomyopathy, acute decompensated congestive heart failure secondary to nonischemic cardiomyopathy, atrial fibrillation because of 4 chamber dilatation. RECOMMENDATIONS: Started Eliquis today, start heart failure therapy digoxin, diuretic, KERMIT inhibitors, Coreg and control the rate with verapamil. He is not a candidate for ARMANI cardioversion because 4 chamber dilatation would not stay in normal sinus. This acute decompensated heart failure secondary to cardiomyopathy could be secondary to all alcohol related versus cannot rule out early viral myocarditis because the patient while was on vacation for one week, she was sick with flu like symptoms. So for now, we will continue Primacor, continue diuretics, get the MUGA scan to baseline to assess LV function. Once the patient becomes euvolemic, probably discharge home on Eliquis, digoxin, diuretic, KERMIT inhibitors, and verapamil. Reassess LV function in 3 to 6 months. If EF remains below 35, consider AICD. Discussed in length with the patient; discussed yesterday twice with sister, Lilly. Patient will get the benefit for continuation of the IV Primacor for 24 to 48 hours. We will reassess tomorrow and blood work up tomorrow. We will supplement with potassium and supplement with magnesium. Also discussed with the resident taking care of the patient in the ICU. Thank you Dr. Thompson for providing the opportunity in taking care patient, Glen Betancourt. Miles Torres MD cc: Leana Thompson MD
[2016-10-24 11:38] LABS: TROPONIN I 2.13 ng/mL
[2016-10-24] MEDS: Digoxin 250 mcg (0.25 mg) Tab PO SCH (14:30)
--- NOTE | 2016-10-24 22:15 | CP.PCM.PN ---
Subjective - Date & Time of Evaluation Date of Evaluation: 10/24/16 Time of Evaluation: 08:00 - Subjective Subjective: Pt seen and examined at bedside. Pt was admitted to ICU overnight for new onset of afib with RVR, on cardizem and heparin drip, in the setting of elevated troponins and concern of NSTEMI. Denies dyspnea at rest, palpitations, cough, cp, n/v/d, fever, chills, abdominal pain. transfer to telemetry , c/o n, v abdominal pain Objective - Vital Signs/Intake and Output Vital Signs (last 24 hours): Temp Pulse Resp BP Pulse Ox 97.7 F 107 H 16 117/76 93 L 10/24/16 17:06 10/24/16 18:17 10/24/16 17:06 10/24/16 18:17 10/24/16 09:00 Intake and Output: 10/24/16 10/25/16 18:59 06:59 Intake Total 780 Output Total 1600 Balance -820 - Medications Medications: Current Medications Apixaban (Eliquis) 5 mg PO BID [facility] PRN Reason: Protocol Last Admin: 10/24/16 18:18 Dose: 5 mg Aspirin (Aspirin Chewable) 81 mg PO DAILY [facility] Stop: 10/24/16 23:59 Last Admin: 10/24/16 11:18 Dose: 81 mg Carvedilol (Coreg) 3.125 mg PO BID [facility] Last Admin: 10/24/16 18:17 Dose: 3.125 mg Digoxin (Lanoxin) 0.25 mg PO 1400 [facility] Last Admin: 10/24/16 14:30 Dose: 0.25 mg Furosemide (Lasix) 40 mg IV 0800,1400 [facility] Last Admin: 10/24/16 14:29 Dose: 40 mg Milrinone Lactate/Dextrose (Primacor 20mg/100ml D5w) 100 mls @ 6.94 mls/hr IV .[id number] PRN; Protocol; 0.2 MCG/KG/MIN PRN Reason: TITRATE PER MD ORDER Last Admin: 10/24/16 05:36 Dose: 0.2 mcg/kg/min, 6.94 mls/hr Magnesium Oxide (Mag-Ox) 400 mg PO BID [facility] Stop: 10/25/16 23:59 Last Admin: 10/24/16 18:17 Dose: 400 mg Morphine Sulfate (Morphine) 2 mg IVP Q4H PRN PRN Reason: Pain, severe (8-10) Last Admin: 10/23/16 07:04 Dose: 2 mg Ondansetron HCl (Zofran Inj) 4 mg IVP Q6H PRN PRN Reason: Nausea/Vomiting Last Admin: 10/24/16 20:19 Dose: 4 mg Pantoprazole Sodium (Protonix Inj) 40 mg IVP DAILY [facility] Last Admin: 10/24/16 11:10 Dose: 40 mg Ramipril (Altace) 1.25 mg PO DAILY [facility] Last Admin: 10/24/16 11:11 Dose: 1.25 mg Spironolactone (Aldactone) 25 mg PO BID [facility] Last Admin: 10/24/16 18:17 Dose: 25 mg Verapamil HCl (Calan Tab) 40 mg PO TID [facility] Last Admin: 10/24/16 18:17 Dose: 40 mg - Labs Labs: 10/24/16 05:40 10/24/16 05:40 PT 14.9 Seconds (9.9-11.8) H 10/22/16 21:48 INR 1.38 (0.93-1.08) H 10/22/16 21:48 APTT 60.4 Seconds (23.7-30.8) H 10/23/16 05:30 - Constitutional Appears: Well - Head Exam Head Exam: ATRAUMATIC, NORMAL INSPECTION, NORMOCEPHALIC - Eye Exam Eye Exam: EOMI, Normal appearance, PERRL Pupil Exam: NORMAL ACCOMODATION, PERRL - ENT Exam ENT Exam: Mucous Membranes Moist, Normal Exam - Neck Exam Neck Exam: Full ROM, Normal Inspection. absent: Lymphadenopathy - Respiratory Exam Respiratory Exam: Clear to Ausculation Bilateral, NORMAL BREATHING PATTERN - Cardiovascular Exam Cardiovascular Exam: REGULAR RHYTHM, +S1, +S2. absent: Murmur - GI/Abdominal Exam GI & Abdominal Exam: Soft, Normal Bowel Sounds. absent: Tenderness Assessment and Plan - Assessment and Plan (Free Text) Assessment: Assessment: 51M with no PMH, admitted to ICU for new onset of atrial fibrillation with RVR, in the setting of elevation troponins, BNP and the concern of NSTEMI. Pt s/p cardiac cath, will await for report. No angioplasty done; no STEMI. Will f/u with Cardio regarding further management of afib, currently on Eliquis and Digoxin. Plan: Neuro -Monitor closely -AAO x3 Cardio -Troponin 2.96->3.22 - New onset of afib 2/2 likely CHF vs EtOH vs cardiomyopathy, unlikely NSTEMI ( since coronary angiogram showed no blockage). - F/u full report of cardiac cath. -A-fib with RVR in the ED, improved with Cardezem drip, titrated to HR<110, off cardizem drip now. - s/p heparin drip for anticoagulation -Cardio (dr. Torres) on board. C/w Lasix 40 mg IV BID, ASA 81, Coreg, Digoxin, Ramipril 1.25 mg, aldactone 25mg bid. -Maintain MAP >65 -F/u echocardiogram Pulm -On NC, Maintain O2 sat >92% -Denies SOB, lungs CTA - CXR shows no pneumonia/pleural effusion. + Cardiomegaly and mild vascular congestion. GI -Protonix PPx - Heart healthy diet feeling nausious , zofran given Nephro -Monitor I's and O's -Replenish electrolyes as needed Endo -Maintain euglycemia Heme/ID -Monitor H/H -No leukocytosis, afebrile at this time -Maintain normothermia DVT PPX: eliquis GI PPX: PP
--- NOTE | 2016-10-25 00:10 | CARD ---
APPROVED REPORT INDICATION Atrial Fibrillation ACUTE CORONARY SYNDROME PROCEDURE The above named patient recieved 28.9 millicuries of Tc99m tagged red blood cells intravenously. After achieving equilibrium, gated imaging of 16/frame/cycle was performed utillizing Gamma camera interfaced with a digital computer and gated device. Gated imaging was then performed in the left anterior oblique, anterior, and the left lateral projections. Findings Left Ventricle: The quality of the study is good. [place] ventricles are enlarged. Wall motion study shows diffuse hypokinesis of the left ventricle. RV wall motion is normal. The right atrium is dynamic. The remainder of the study is unremarkable. Impressions Moderate to severe LV dysfunction with diffuse hypokinesis. LVEF = 30%. Normal RV wall motion.
[2016-10-25 08:00] LABS: ALB/GLOB RATIO 1.1 (1.1-1.8); ALBUMIN 3.3 g/dL (3.0-4.8); ALT/SGPT 47 U/L (7-56); AST/SGOT 35 U/L (15-59); BLOOD UREA NITROGEN 21 mg/dL (7-21); CALCIUM 8.5 mg/dL (8.4-10.5); GFR AFRICAN-AMERICAN > 60; GFR NON-AFRICAN AMERICAN > 60; MAGNESIUM 1.9 mg/dL (1.7-2.2)
[2016-10-25 08:03] LABS: HEMOGLOBIN 13.1 gm/dL (14.0-18.0); MEAN CELL VOLUME 99.5 fL (80.0-105.0); MEAN CORPUSCULAR HEMOGLOBIN 33.3 pg (25.0-35.0); MEAN CORPUSCULAR HGB CONC 33.5 g/dl (31.0-37.0); RBC 3.93 10^6/uL (3.5-6.1); RED CELL DISTRIBUTION WIDTH 13.8 % (11.5-14.5); WHITE BLOOD COUNT 7.2 10^3/ul (4.5-11.0)
[2016-10-25 08:23] LABS: TROPONIN I 1.52 ng/mL
[2016-10-25] MEDS ORDERED: Potassium Chloride 20 mEq ER Tab PO ONE (08:30)
[2016-10-25] MEDS: Magnesium Oxide 400 mg Tab UD PO SCH ×2 (09:05→17:00)
[2016-10-25] MEDS: Digoxin 250 mcg (0.25 mg) Tab PO SCH (13:01)
[2016-10-25] MEDS: metOLazone 5 MG TAB PO SCH (13:02)
--- NOTE | 2016-10-25 13:14 | PN ---
DATE: 10/25/2016 REASON FOR CONSULTATION: Follow up positive troponin, atrial fibrillation, rapid ventricular, new onset of atrial fibrillation, nonischemic cardiomyopathy, and rule out myocarditis. BRIEF CLINICAL HISTORY: A 51-year-old male with a past medical history of significant tobacco abuse, alcohol abuse, admitted with decompensated congestive heart failure, atrial fibrillation, positive troponin, underwent cardiac catheterization, nonobstructive coronary artery disease, only distal OM1 80% stenosis, not suitable for PCI, very distal. Patient started on Eliquis and Primacor and heart failure medication improved. Denies any chest pain or shortness of breath. Denies any palpitations. He had a good diuresis. PHYSICAL EXAMINATION: As follows: VITAL SIGNS: Temperature afebrile, heart rate 89, and blood pressure 124/97. HEENT: PERRLA intact. NECK: Supple. No carotid bruit. No thyromegaly. CHEST: Clear to auscultation. HEART: S1 and S2 regular. ABDOMEN: Soft. EXTREMITIES: Clubbing and cyanosis negative. LABORATORY DATA: Blood workup as follows: WBC 7.8, hemoglobin 13.1, hematocrit 39.1, and platelet count 207. Chemistry shows sodium 138, potassium 3.7, chloride 103, carbon dioxide 27, anion gap of 12, BUN 21, and creatinine of 0.6. IMPRESSION: A 51-year-old male with a past medical history significant for tobacco abuse and alcohol abuse, admitted with acute decompensated congestive heart failure, atrial fibrillation with rapid ventricular rate, positive troponin, underwent cardiac catheterization shows essentially major essentially free of significant disease, only obtuse marginal 1 branch of circumflex, very distal 80% stenosis, not suitable for percutaneous coronary intervention, overall decreased left ventricular function. Echo showed ejection fraction of 25% to 30%. Patient underwent MUGA scan yesterday that also showed ejection fraction 30%. Echo shows 4-chamber dilatation consistent with cardiomyopathy, severe mitral regurgitation, severe tricuspid regurgitation, and possible alcohol-related cardiomyopathy nonischemic. RECOMMENDATIONS: Continue Primacor for 24 hours. Continue diuretics. Supplement electrolytes as needed. We will continue digoxin, KERMIT inhibitor, and Coreg. Continue ramipril. Patient is not considered for ARMANI cardioversion because 4-chamber dilatation will not stay in normal sinus, so we will here, we will control the rate not the rhythm control, but here we control the rate. Patient is also started on verapamil to control heart rate and if needed, we can increase ramipril to 2.5 for blood pressure because the patient has a plenty of room for blood pressure medication. We will follow with you. We will follow the electrolytes and we will wean off the Primacor tomorrow and possible discharge in a day or 2 when stable. We will wean off the Primacor on Thursday morning, we will give maximum benefit with the Primacor, and also add on two doses of Zaroxolyn to get more diuresed. We will follow with you. Follow the electrolytes in the morning. Thank you for the opportunity in taking care of Glen Betancourt. Miles Torres MD
[2016-10-25] MEDS: Milrinone 20mg/100ml D5W 100 ML IV PRN (16:00)
--- NOTE | 2016-10-25 22:16 | PN ---
DATE: 10/25/2016 SUBJECTIVE: The patient is a 51-year-old male. The patient is seen and examined at the bedside, sleepy and arousable. No nausea, vomiting, diarrhea, hematuria, or hematochezia, had no swelling of the legs. According to him, he has episode of chest pain and shortness of breath today, but right now no chest pain, no hematuria, no hematochezia. PHYSICAL EXAMINATION VITAL SIGNS: Temperature 98.1, pulse 97, blood pressure 98/55, respiratory rate 20. HEENT: Head is normocephalic, atraumatic. Eyes; PERRLA, extraocular muscles intact, conjunctivae clear. Nose patent. Mucous membranes moist. NECK: Supple. No carotid bruits or thyromegaly. CHEST: Bilaterally symmetrical. CARDIOPULMONARY: S1 and S2 positive. LUNGS: Clear to auscultation. ABDOMEN: Soft. Bowel sounds present. No organomegaly. EXTREMITIES: No edema. No cyanosis. NEUROLOGIC: The patient is awake and alert. Moving all four extremities. No focal deficit. LABORATORY DATA: White blood cells 7.8, hemoglobin 13.1, hematocrit 39.1, platelets 207. Sodium 138, potassium 3.7, BUN 21, creatinine 0.6, glucose 98, troponin initial was 2.4, second day 2.13, third day 1.5, that is trending down. MEDICATIONS: 1. Aldactone. 2. Ramipril. 3. Calan. 4. Coreg. 5. Eliquis. 7. Lasix. 9. Morphine. 10. Primacor. 11. Protonix. 12. Zaroxolyn. 13. Zofran. ASSESSMENT AND PLAN: This is a 51-year-old male with history of tobacco abuse, alcohol abuse, came in with acute decompensated congestive heart failure, atrial fibrillation with rapid ventricular rate, positive troponin, underwent cardiac catheterization that was essentially normal, only obtuse marginal 1 branch of circumflex, very distal 80%stenosis, not suitable for percutaneous coronary intervention, overall decreased left ventricular function. Echo showed ejection fraction of 25% to 30%. The patient underwent MUGA scan yesterday that also showed ejection fraction of 30%. Echo shows 4-chamber dilatation consistent with cardiomyopathy, severe mitral regurgitation, severe tricuspid regurgitation, and possible alcohol-related cardiomyopathy, nonischemic. The patient is getting Primacor of 24 hour. Continue diuretics. Supplement electrolytes as needed. Continue digoxin, KERMIT inhibitor, Coreg, and ramipril. The patient is not considered for ARMANI cardioversion because of 4-chamber dilatation, will not stay in normal sinus, even it will come to some normal sinus, so cardiology has decided to control the rate not the rhythm control, but here we control the rate. The patient is also started on verapamil to control heart rate and if needed, we will increase ramipril for blood pressure because the patient has plenty of room for blood pressure medication and according to Dr. caban, we will wean Primacor tomorrow on Thursday. He will have to give maximum benefit of Primacor and add a two doses of Zaroxolyn to get more diureses. GI and DVT prophylaxis, repeat labs, and we will follow. Leana Thompson MD [facility]TD[facility]
[2016-10-26] MEDS: Milrinone 20mg/100ml D5W 100 ML IV PRN (06:42)
[2016-10-26 07:47] LABS: HEMOGLOBIN 13.9 gm/dL (14.0-18.0); MEAN CELL VOLUME 97.8 fL (80.0-105.0); MEAN CORPUSCULAR HEMOGLOBIN 33.6 pg (25.0-35.0); MEAN CORPUSCULAR HGB CONC 34.3 g/dl (31.0-37.0); MEAN PLATELET VOLUME 9.1 fl (7.0-11.0); RBC 4.14 10^6/uL (3.5-6.1); RED CELL DISTRIBUTION WIDTH 13.5 % (11.5-14.5); WHITE BLOOD COUNT 8.1 10^3/ul (4.5-11.0)
[2016-10-26 08:11] LABS: ALB/GLOB RATIO 1.2 (1.1-1.8); ALBUMIN 3.5 g/dL (3.0-4.8); ALT/SGPT 43 U/L (7-56); AST/SGOT 34 U/L (15-59); BLOOD UREA NITROGEN 21 mg/dL (7-21); GFR AFRICAN-AMERICAN > 60; GFR NON-AFRICAN AMERICAN > 60; MAGNESIUM 1.9 mg/dL (1.7-2.2)
[2016-10-26 08:45] LABS: TROPONIN I 1.16 ng/mL
[2016-10-26] MEDS: metOLazone 5 MG TAB PO SCH (11:41)
[2016-10-26] MEDS: Digoxin 250 mcg (0.25 mg) Tab PO SCH (14:32)
--- NOTE | 2016-10-26 18:37 | PN ---
DATE: 10/26/2016 REASON FOR FOLLOWUP: Atrial fibrillation; 4-chamber dilatation; cardiomyopathy, nonischemic. SUBJECTIVE: The patient denies any chest pain or shortness of breath, frustrated and wants to go home. PHYSICAL EXAMINATION: GENERAL: The patient is lying flat. VITAL SIGNS: Nurse called the patient is hypotensive, so blood pressure was 99 and Primacor was discontinued. Temperature afebrile, heart rate 66, blood pressure 95/60. HEENT: PERRLA intact. NECK: Supple. No carotid bruits or thyromegaly. CHEST: Clear to auscultation. HEART: S1 and S2, regular. ABDOMEN: Soft. EXTREMITIES: Clubbing and cyanosis negative. LABORATORY DATA: WBC 8.1, hemoglobin 13.1, hematocrit 40.5, and platelet count 223. Chemistry show sodium 133, potassium 4, chloride 97, carbon dioxide 29, anion gap of 12, BUN 21, creatinine 0.7. Troponin is 0.16. IMPRESSION: Cardiomyopathy, nonischemic; nonobstructive coronary artery disease, essentially major epicardial, essentially free of significant disease; obtuse marginal 1 has 80% stenosis; 4-chamber dilatation; atrial fibrillation. MUGA scan showed ejection fraction of 30%. By echo and catheterization, ejection fraction around 30% RECOMMENDATIONS: Continue digoxin. Continue KERMIT inhibitor, lisinopril. Lasix changed to p.o. Continue Eliquis for anticoagulation. Discontinue Primacor with a low blood pressure. Continue Ramipril as blood pressure starts. Continue Coreg. Control the heart rate with verapamil. We will check the blood chemistry tomorrow. If remains stable, possible discharge home in a.m. We will discuss with Dr. Thompson. Thank you Dr. Thompson for providing the opportunity in taking care patient, Glen Betancourt. I explained the patient, the patient needs to reevaluate LV function in 3 to 6 months. If remained below 30%, consider AICD. The patient also insisted on complete cessation smoking, complete abstinence from alcohol. The patient mentioned that he will not drink and smoke again. He will be compliant with the medication. For the last couple of days, the patient has a negative lying flat in the bed. Miles Torres MD [facility] # [id number]
--- NOTE | 2016-10-26 20:39 | PN ---
SUBJECTIVE: The patient is seen and examined on the bedside. No chest pain, no shortness of breath, as per the patient, having low blood pressure and the patient was having dinner, sitting with his girlfriend, discontinued Primacor drip by Dr. Torres and nurse is holding all blood pressure medicines because of hypotension. He wants to go home. No nausea, vomiting, diarrhea and no headache, no dizziness. No swelling of the leg. PHYSICAL EXAMINATION VITAL SIGNS: Temperature 98.6, heart rate 66, blood pressure 95/66, respiratory rate 18. HEENT: Head is normocephalic, atraumatic. Eyes; PERRLA, extraocular muscles intact, conjunctivae clear. Nose patent. Mucous membranes moist. NECK: Supple. No carotid bruits or thyromegaly. CHEST: Bilaterally symmetrical. HEART: S1 and S2 positive. LUNGS: Clear to auscultation. ABDOMEN: Soft. Bowel sounds present. No organomegaly. EXTREMITIES: No edema. No cyanosis. NEUROLOGIC: The patient is awake and alert. Moving all four extremities. No focal deficit. LABORATORY DATA: White blood cells 8.1, hemoglobin 13.1, hematocrit 40.5, platelets 223. Sodium 133, potassium 4.0, BUN 31, creatinine 0.7, troponin 0.16. ASSESSMENT AND PLAN: The patient is a 51-year-old male with history of cardiomyopathy, nonischemic, per Dr. Torres; nonobstructive coronary artery disease, status post cardiac catheterization, essentially , dilated cardiomyopathy, 4 chambers; atrial fibrillation. MUGA scan showed ejection fraction of 30%. By echo catheterization, ejection fraction 30%. PLAN: Discontinue the Primacor drip, holding blood pressure medications. Continue Protonix. The patient was on Aldactone, ramipril, Calan, Coreg, Lasix and morphine. History of tobacco abuse, ethanol abuse. Now decompensated congestive heart failure, atrial fibrillation with rapid ventricular rate. According to Dr. Torres, converted to ARMANI cardioversion because of 4 chambers of dilation. Continue present treatment, GI and DVT prophylaxis. Length of time discussion done with the patient and the patient girlfriend. All questions answered. Leana Thompson MD [facility] # [id number] MTDD
[2016-10-27] MEDS ORDERED: Pantoprazole 40 mg EC Tab PO SCH (06:00)
[2016-10-27 06:38] LABS: BASO # 0.03 K/mm3 (0.0-2.0); BASO % 0.4 % (0.0-3.0); EOS # 0.2 (0.0-0.7); EOS % 2.7 % (1.5-5.0); GRAN # 4.32 (1.4-6.5); GRAN % 54.5 % (50.0-68.0); HEMOGLOBIN 14.8 gm/dL (14.0-18.0); LYMPH # 2.4 (1.2-3.4); LYMPH % 30.3 % (22.0-35.0); MEAN CELL VOLUME 97.5 fL (80.0-105.0); MEAN CORPUSCULAR HEMOGLOBIN 34.3 pg (25.0-35.0); MEAN CORPUSCULAR HGB CONC 35.2 g/dl (31.0-37.0); MEAN PLATELET VOLUME 8.9 fl (7.0-11.0); MONO % 12.1 % (1.0-6.0); PLATELET COUNT 230 10^3/uL (120.0-450.0); RBC 4.32 10^6/uL (3.5-6.1); RED CELL DISTRIBUTION WIDTH 13.5 % (11.5-14.5); WHITE BLOOD COUNT 7.9 10^3/ul (4.5-11.0)
[2016-10-27 06:42] LABS: ALB/GLOB RATIO 1.2 (1.1-1.8); ALBUMIN 3.9 g/dL (3.0-4.8); ALT/SGPT 52 U/L (7-56); AST/SGOT 35 U/L (15-59); BLOOD UREA NITROGEN 23 mg/dL (7-21); CALCIUM 9.3 mg/dL (8.4-10.5); GFR AFRICAN-AMERICAN > 60; GFR NON-AFRICAN AMERICAN > 60; MAGNESIUM 1.9 mg/dL (1.7-2.2)
[2016-10-27 06:51] VITALS: O2SAT 96
[2016-10-27 12:46] VITALS: BP 90/58; PULSE 63; RESP 17; TEMP 97.5
[2016-10-27] MEDS: Digoxin 250 mcg (0.25 mg) Tab PO SCH (13:27)
[2016-10-27 13:28] VITALS: PULSE 63
--- NOTE | 2016-10-27 18:29 | PN ---
DATE: 10/27/2016 REASON FOR CONSULTATION: Atrial fibrillation, 4-chamber dilatation, and cardiomyopathy, nonischemic. SUBJECTIVE: The patient denies any chest pain, shortness of breath, any palpitations, feels okay, and wanted to go home. PHYSICAL EXAMINATION: As follow: VITAL SIGNS: Temperature afebrile, heart rate 77, and blood pressure 105/72. HEENT: PERRLA intact. NECK: Supple. No carotid bruits or thyromegaly. CHEST: Clear to auscultation. HEART: S1 and S2, regular. ABDOMEN: Soft. EXTREMITIES: Clubbing and cyanosis negative. LABORATORY DATA: Blood workup as follows: WBC 7.9, hemoglobin 14.2, hematocrit 42.1, and platelet count 230. Chemistry show sodium 130, potassium 4.9, chloride 94, carbon dioxide 29, anion gap of 13, BUN 23, and creatinine 0.7. IMPRESSION: A 51-year-old male with no significant past medical history except acute tobacco abuse, acute alcohol abuse, admitted with acute decompensated congestive heart failure, atrial fibrillation with rapid ventricular rate, and troponin positive. The patient underwent cardiac catheterization that reveal nonobstructive coronary artery disease, essentially major epicardial coronaries essentially free of significant disease except obtuse marginal with 80% of stenosis. Echo shows 4-chamber dilatation, ejection fraction severely decreased ejection 30% by echo and by MUGA. RECOMMENDATIONS: The patient started on Eliquis, heart failure medication, digoxin, diuretic, KERMIT inhibitors, and continue for Primacor *------* discontinued with low blood pressure. The patient is fairly stable now, euvolemic, possible discharge home, we will discontinue telemetry, and needs to reassess LV function 3 to 6 months, EF remains below 30, consider AICD. Discussed the patient in length. The patient needs to continue anticoagulation for AFib, ARMANI cardioversion not attempted with 4 chamber dilatation, possibly if not to stay in sinus even if converted, the chances of converting is very low and if he has converted not to stay in sinus and in the best interest, the patient with high CHADS score needs to be on long time anticoagulation to prevent thromboembolic complication from atrial fibrillation. Thank you *------* for the opportunity in taking care of the patient Glen Betancourt. Miles Torres MD
== END 2016-10-27 16:36 | disposition home or self-care (01) | DRG 287 ==
LOC: ED 21:31 → ERH 23:25 → CCU 10-23 00:30 → 2RNO 10-24 00:48
PROVIDERS: ADMIT Internal Medicine; ATTEND Internal Medicine
PROC: 4A023N7 Measurement of Cardiac Sampling and Pressure, Left Heart, Percutaneous Approach (ICD-10-PCS; principal; 2016-10-23)
PROC: B2111ZZ Fluoroscopy of Multiple Coronary Arteries using Low Osmolar Contrast (ICD-10-PCS; 2016-10-23)
PROC: B2151ZZ Fluoroscopy of Left Heart using Low Osmolar Contrast (ICD-10-PCS; 2016-10-23)
DX: I50.23 Acute on chronic systolic (congestive) heart failure (principal); I42.0 Dilated cardiomyopathy; I48.91 Unspecified atrial fibrillation; I27.2 Other secondary pulmonary hypertension; I25.10 Atherosclerotic heart disease of native coronary artery without angina pectoris; E83.42 Hypomagnesemia; F10.10 Alcohol abuse, uncomplicated; E87.6 Hypokalemia; I08.1 Rheumatic disorders of both mitral and tricuspid valves; F17.210 Nicotine dependence, cigarettes, uncomplicated; Z82.3 Family history of stroke; Z82.49 Family history of ischemic heart disease and other diseases of the circulatory system